=== PATIENT | female | born 1945 | race Hispanic/Latino ===

== ENCOUNTER 2017-11-13 21:06 | Observation (INO) | payer OTHER ==
[~2017-11-13] VITALS: Ht 170.2 cm; Wt 92.1 kg
[~2017-11-13 21:06] MED LIST: ALPR1TAB7 PO; AMLO10TA4 PO; ASPI-555 PO; ATOR10 PO; CARV6.2579 PO; DOXY100T2 PO; FURO40TA5 PO; GABA-529 PO; HYDR-4154 PO; Hydralazine Hcl PO; INSU100V SQ; INSU100V12 SQ; Isosorbide Mononitrate PO; METO2.5T2 PO
[2017-11-13 21:32] LABS: BASOPHILS % (AUTO) 0.6 % (0.0-5.0); EOSINOPHILS % (AUTO) 3.7 % (0.0-8.0); HEMATOCRIT 29.5 % (36-48); LYMPHOCYTES % (AUTO) 13.6 % (21.0-51.0); MEAN CORPUSCULAR HEMOGLOBIN 27.8 pg (27.0-33.0); MEAN CORPUSCULAR HGB CONC 33.7 g/dL (32.0-36.0); MEAN CORPUSCULAR VOLUME 82.5 fL (79-99); MONOCYTES % (AUTO) 5.7 % (3.0-13.0); NEUTROPHILS % (AUTO) 76.4 % (40.0-77.0); PLATELET COUNT (AUTO) 205 K/uL (130-400); RED BLOOD CELL COUNT(AUTO) 3.57 MIL/uL (4.00-5.50); RED CELL DISTRIBUTION WIDTH 16.6 % (11.0-15.5); WHITE BLOOD COUNT (AUTO) 6.8 K/uL (4.8-10.8)
[2017-11-13 21:57] LABS: CREATININE 2.4 mg/dL (0.5-1.5); POTASSIUM 3.8 mmol/L (3.5-5.1)
[2017-11-13 22:04] LABS: B-TYPE NATRIURETIC PEPTIDE 966 pg/mL (0-100)
[2017-11-13 22:10] LABS: ALBUMIN 3.9 g/dL (3.5-5.0); BILIRUBIN,TOTAL 0.4 mg/dL (0.2-1.0); CREATINE KINASE MB 2.6 ng/mL (0.5-3.6); TOTAL PROTEIN, SERUM 8.4 g/dL (6.0-8.3)
[2017-11-13] MEDS ORDERED: NITROGLYCERIN 1GM/1 INCH PACKET TD ONE (23:17)
[2017-11-13] MEDS ORDERED: FUROSEMIDE 10 MG/ML 4ML VIAL ONE (23:18)
[2017-11-14] MEDS ORDERED: NITROGLYCERIN 0.4 MG SL TAB SL PRN (00:45)
[2017-11-14] MEDS ORDERED: GUAIFENESIN-DM 200/20 MG 10 ML PO PRN (00:45)
[2017-11-14] MEDS ORDERED: POTASSIUM CHLORIDE 10% ELIXIR 20 MEQ/15 ML UDCUP PO PRN (00:45)
[2017-11-14] MEDS ORDERED: LIDOCAINE HCL-MPF 1% 2ML VIAL IVP PRN (00:45)
[2017-11-14] MEDS ORDERED: ACETAMINOPHEN 325 MG TAB PO PRN ×2 (00:45)
[2017-11-14] MEDS ORDERED: ONDANSETRON HCL 4 MG/2 ML VIAL IV PRN (00:45)
[2017-11-14] MEDS ORDERED: POTASSIUM CHLORIDE 20MEQ/100ML 100 ML IV PRN (00:45)
[2017-11-14] MEDS: NITROGLYCERIN 1GM/1 INCH PACKET TD SCH ×4 (01:00→19:52)
[2017-11-14 01:30] LABS: APPEARANCE,URINE Cloudy (CLEAR); BILIRUBIN,URINE Negative (NEGATIVE); COLOR,URINE Yellow (YELLOW); GLUCOSE, URINE (UA) Negative (NEGATIVE); KETONES,URINE Negative (NEGATIVE); LEUKOCYTE ESTERASE ,URINE Moderate (NEGATIVE); NITRATE,URINE Negative (NEGATIVE); OCCULT BLOOD,URINE Trace (NEGATIVE); PROTEIN,URINE POS 2+ (NEGATIVE); UROBILINOGEN,URINE 0.2 mg/dL (0.2-1.0)
[2017-11-14 01:55] LABS: BACTERIA,URINE Many /HPF (None Seen); MUCUS,URINE Few LPF (None Seen); SQUAMOUS EPITHELIAL CELL,UR Few /LPF (0-2)
[2017-11-14] MEDS ORDERED: ALPRAZOLAM 0.25 MG TABLET ONE (02:25)
[2017-11-14] MEDS ORDERED: LORAZEPAM 2 MG/ML 1 ML VIAL ONE ×2 (03:01→23:29)
[2017-11-14 06:36] LABS: HEMATOCRIT 26.3 % (36-48); MEAN CORPUSCULAR HGB CONC 33.1 g/dL (32.0-36.0); MEAN CORPUSCULAR VOLUME 81.6 fL (79-99); PLATELET COUNT (AUTO) 189 K/uL (130-400); RED BLOOD CELL COUNT(AUTO) 3.23 MIL/uL (4.00-5.50); RED CELL DISTRIBUTION WIDTH 16.4 % (11.0-15.5)
[2017-11-14 06:49] LABS: CREATININE 2.4 mg/dL (0.5-1.5); POTASSIUM 3.6 mmol/L (3.5-5.1)
[2017-11-14] MEDS: INSULIN HUMULIN R 100 UNIT/ML 3ML SQ SCH ×4 (07:30→20:46)
[2017-11-14] MEDS ORDERED: INSULIN HUMULIN R 100 UNIT/ML 3ML ONE (07:57)
[2017-11-14] MEDS ORDERED: FUROSEMIDE 10 MG/ML 4ML VIAL ONE (08:57)
[2017-11-14] MEDS ORDERED: ENOXAPARIN SODIUM 40 MG/0.4 ML SYRINGE SQ ONE (08:57)
[2017-11-14] MEDS ORDERED: ASPIRIN 325 MG TABLET ONE (08:57)
[2017-11-14] MEDS ORDERED: FAMOTIDINE 20MG TAB 20 MG TAB ONE (08:58)
[2017-11-14] MEDS ORDERED: NITROGLYCERIN 1GM/1 INCH PACKET TD ONE (08:58)
[2017-11-14] MEDS: FAMOTIDINE 20MG TAB 20 MG TAB PO SCH (09:00)
[2017-11-14] MEDS: ENOXAPARIN SODIUM 30 MG/0.3 ML SQ SCH (09:00)
[2017-11-14] MEDS: FUROSEMIDE 10 MG/ML 4ML VIAL IVP SCH ×2 (09:00→20:07)
[2017-11-14] MEDS: ASPIRIN 325 MG TABLET PO SCH (09:00)
[2017-11-14] MEDS ORDERED: HYDRALAZINE HCL 20 MG/ML VIAL ONE (09:52)
[2017-11-14 11:26] VITALS: BP 182/67
[2017-11-14] MEDS ORDERED: CEFTRIAXONE SODIUM 1 GM IVP SCH (12:30)
[2017-11-14] MEDS ORDERED: CEFTRIAXONE 1GM/D5W 50ML 50 ML IV SCH (12:30)
[2017-11-14] MEDS: AMLODIPINE BESYLATE 5 MG TAB PO SCH (12:36)
[2017-11-14] MEDS: POTASSIUM CHLORIDE 20 MEQ ERTAB PO PRN ×2 (15:28→17:28)
[2017-11-14 16:19] VITALS: BP 149/57
[2017-11-14 19:46] VITALS: BP 178/62
[2017-11-14] MEDS: GABAPENTIN 100 MG CAPSULE PO SCH (20:08)
[2017-11-14] MEDS: CARVEDILOL 6.25 MG TABLET PO SCH (20:08)
[2017-11-14] MEDS ORDERED: ATORVASTATIN CALCIUM 10 MG TABLET PO SCH (21:00)
[2017-11-14] MEDS ORDERED: LORAZEPAM 2 MG/ML 1 ML VIAL IVP PRN (23:00)
[2017-11-15 00:08] VITALS: BP 167/66
[2017-11-15] MEDS: NITROGLYCERIN 1GM/1 INCH PACKET TD SCH (03:27)
[2017-11-15 03:46] VITALS: BP 176/73
[2017-11-15 04:42] LABS: HEMATOCRIT 26.8 % (36-48); MEAN CORPUSCULAR HEMOGLOBIN 27.7 pg (27.0-33.0); MEAN CORPUSCULAR HGB CONC 33.3 g/dL (32.0-36.0); MEAN CORPUSCULAR VOLUME 83.1 fL (79-99); PLATELET COUNT (AUTO) 158 K/uL (130-400); RED BLOOD CELL COUNT(AUTO) 3.22 MIL/uL (4.00-5.50); WHITE BLOOD COUNT (AUTO) 5.1 K/uL (4.8-10.8)
[2017-11-15 04:52] LABS: CREATININE 2.5 mg/dL (0.5-1.5); POTASSIUM 3.6 mmol/L (3.5-5.1)
[2017-11-15] MEDS: INSULIN HUMULIN R 100 UNIT/ML 3ML SQ SCH (05:36)
[2017-11-15 07:36] VITALS: BP 120/80
[2017-11-15] MEDS: ENOXAPARIN SODIUM 30 MG/0.3 ML SQ SCH (08:12)
[2017-11-15 08:13] VITALS: BP 120/80
[2017-11-15] MEDS: CARVEDILOL 6.25 MG TABLET PO SCH (08:13)
[2017-11-15] MEDS: FAMOTIDINE 20MG TAB 20 MG TAB PO SCH (08:13)
[2017-11-15] MEDS: GABAPENTIN 100 MG CAPSULE PO SCH (08:13)
[2017-11-15] MEDS: AMLODIPINE BESYLATE 5 MG TAB PO SCH (08:13)
[2017-11-15] MEDS: FUROSEMIDE 10 MG/ML 4ML VIAL IVP SCH (08:14)
[2017-11-15] MEDS: ASPIRIN 325 MG TABLET PO SCH (08:14)
[2017-11-15] MEDS ORDERED: DOXY100C2 PO (08:54)
[2017-11-15] MEDS ORDERED: ASPIRIN 81 MG EC TAB PO SCH (09:00)
[2018-04-28] MEDS ORDERED: IBUP-2353 PO (13:05)
[2018-04-28] MEDS ORDERED: APIX2.5T PO (13:05)
== END 2017-11-15 09:50 | disposition home or self-care (01) ==
LOC: EDH 21:06 → EDHIP 23:30 → 2CH 11-14 10:56 → 2AH 11-14 14:09
PROVIDERS: ADMIT Internal Medicine; ATTEND Internal Medicine
DX: I50.43 Acute on chronic combined systolic (congestive) and diastolic (congestive) heart failure (principal); I13.0 Hypertensive heart and chronic kidney disease with heart failure and stage 1 through stage 4 chronic kidney disease, or unspecified chronic kidney disease; E11.22 Type 2 diabetes mellitus with diabetic chronic kidney disease; N18.3 Chronic kidney disease, stage 3 (moderate); E78.5 Hyperlipidemia, unspecified; N39.0 Urinary tract infection, site not specified; D64.9 Anemia, unspecified; Z82.49 Family history of ischemic heart disease and other diseases of the circulatory system
CPT/HCPCS: 36415 ×3; 71010; 80048 ×2; 80053; 81001; 82550; 82553; 82948 ×5; 83880; 84484; 85025; 85027 ×2; 87088; 87186; 93005; 96374; 96375 ×2; 96376; 99291; G0378 ×34; J0360; J0696; J1650; J1815; J1940 ×4; J2060 ×2; A4218

== ENCOUNTER 2017-11-16 15:20 | Emergency (ER) | payer OTHER, MEDICARE ==
[~2017-11-16 15:20] MED LIST changes: +DOXY100C2 PO; -DOXY100T2 PO; -HYDR-4154 PO; -Hydralazine Hcl PO; -Isosorbide Mononitrate PO; -METO2.5T2 PO
[2017-11-16 16:28] LABS: BASOPHILS % (AUTO) 0.6 % (0.0-5.0); EOSINOPHILS % (AUTO) 1.9 % (0.0-8.0); HEMATOCRIT 29.2 % (36-48); LYMPHOCYTES % (AUTO) 5.1 % (21.0-51.0); MEAN CORPUSCULAR HEMOGLOBIN 27.1 pg (27.0-33.0); MEAN CORPUSCULAR VOLUME 82.1 fL (79-99); MONOCYTES % (AUTO) 5.7 % (3.0-13.0); NEUTROPHILS % (AUTO) 86.7 % (40.0-77.0); NUCLEATED RED BLOOD CELLS 0.1 % (0.0-0.19); PLATELET COUNT (AUTO) 174 K/uL (130-400); RED BLOOD CELL COUNT(AUTO) 3.55 MIL/uL (4.00-5.50); RED CELL DISTRIBUTION WIDTH 16.8 % (11.0-15.5); WHITE BLOOD COUNT (AUTO) 6.9 K/uL (4.8-10.8)
[2017-11-16 16:36] LABS: CREATININE 2.4 mg/dL (0.5-1.5); POTASSIUM 3.6 mmol/L (3.5-5.1)
[2017-11-16 16:41] LABS: ALBUMIN 3.8 g/dL (3.5-5.0); BILIRUBIN,TOTAL 0.6 mg/dL (0.2-1.0); TOTAL PROTEIN, SERUM 8.1 g/dL (6.0-8.3)
[2017-11-16] MEDS ORDERED: OSELTAMIVIR PHOSPHATE 75 MG CAP ONE (18:20)
[2017-11-16] MEDS ORDERED: LORAZEPAM 1 MG TABLET ONE (18:21)
[2017-11-16] MEDS ORDERED: LORAZEPAM 2 MG/ML 1 ML VIAL ONE (18:40)
[2017-11-16] MEDS ORDERED: OSELTAMIVIR SUSP 15 MG/ML (6 CAPS/29ML) PO SCH ×2 (18:45)
[2017-11-16] MEDS ORDERED: ACETAMINOPHEN 325 MG TAB ONE (19:38)
[2017-11-16] MEDS ORDERED: ACETAMINOPHEN ELIXIR 650 MG/20.3 ML UDCUP ONE (20:00)
[2017-11-16] MEDS ORDERED: NITROGLYCERIN 1GM/1 INCH PACKET TD ONE (20:15)
[2017-11-16] MEDS ORDERED: IPRATROPIUM/ALBUTEROL SULFATE 3 ML SOLUTION IH ONE (22:05)
[2018-04-28] MEDS ORDERED: APIX2.5T PO (13:05)
[2018-04-28] MEDS ORDERED: IBUP-2353 PO (13:05)
== END 2017-11-16 23:24 | disposition home or self-care (01) ==
LOC: EDH 15:20
DX: J10.1 Influenza due to other identified influenza virus with other respiratory manifestations (principal); I13.2 Hypertensive heart and chronic kidney disease with heart failure and with stage 5 chronic kidney disease, or end stage renal disease; E13.22 Other specified diabetes mellitus with diabetic chronic kidney disease; N18.6 End stage renal disease; I50.9 Heart failure, unspecified; Z88.1 Allergy status to other antibiotic agents; Z88.6 Allergy status to analgesic agent; Z79.4 Long term (current) use of insulin
CPT/HCPCS: 36415; 71046; 80053; 84484; 85025; 87804 ×2; 93005; 94640; 96374; 99285; J2060

== ENCOUNTER 2018-01-02 12:55 | Observation (INO) | payer OTHER, MEDICARE ==
[~2018-01-02] VITALS: Ht 170.2 cm; Wt 96.4 kg
[2018-01-02 13:22] LABS: HEMATOCRIT 29.1 % (36-48); MEAN CORPUSCULAR HGB CONC 33.8 g/dL (32.0-36.0); MEAN CORPUSCULAR VOLUME 82.9 fL (79-99); PLATELET COUNT (AUTO) 152 K/uL (130-400); RED BLOOD CELL COUNT(AUTO) 3.51 MIL/uL (4.00-5.50); RED CELL DISTRIBUTION WIDTH 16.5 % (11.0-15.5); WHITE BLOOD COUNT (AUTO) 6.2 K/uL (4.8-10.8)
[2018-01-02 13:45] LABS: INR 1.15 (0.85-1.15); PARTIAL THROMBOPLASTIN TIME 26.8 SEC (26.3-35.5)
[2018-01-02 13:47] LABS: CREATININE 2.4 mg/dL (0.5-1.5); POTASSIUM 4.6 mmol/L (3.5-5.1)
[2018-01-02 13:51] LABS: ALBUMIN 3.5 g/dL (3.5-5.0); BILIRUBIN,TOTAL 0.4 mg/dL (0.2-1.0); TOTAL PROTEIN, SERUM 7.8 g/dL (6.0-8.3)
[2018-01-02 13:55] LABS: B-TYPE NATRIURETIC PEPTIDE 939 pg/mL (0-100)
[2018-01-02 13:57] LABS: EOSINOPHILS % (MANUAL) 3 % (1-6); LYMPHOCYTES % (MANUAL) 15 % (22-44); MAN.DIFF COMMENT-IMPRESSION MANUAL DIFFERENTIAL; MONOCYTES % (MANUAL) 8 % (2-9); PLATELET MORPHOLOGY COMMENT ADEQUATE; SEGMENTED NEUTROPHILS % 74 % (40-70)
[2018-01-02] MEDS ORDERED: FUROSEMIDE 10 MG/ML 4ML VIAL ONE (15:20)
[2018-01-02] MEDS ORDERED: FUROSEMIDE 10 MG/ML 2ML VIAL ONE (15:20)
[2018-01-02 16:28] LABS: BILIRUBIN,URINE Negative (NEGATIVE); COLOR,URINE Yellow (YELLOW); GLUCOSE, URINE (UA) Negative (NEGATIVE); KETONES,URINE Negative (NEGATIVE); LEUKOCYTE ESTERASE ,URINE Large (NEGATIVE); NITRATE,URINE Negative (NEGATIVE); OCCULT BLOOD,URINE Small (NEGATIVE); PROTEIN,URINE POS 1+ (NEGATIVE); UROBILINOGEN,URINE 0.2 mg/dL (0.2-1.0)
[2018-01-02] MEDS ORDERED: MAG HYDROX/AL HYDROX/SIMETH ES 30 ML SUSP UDCUP PO PRN (16:30)
[2018-01-02] MEDS ORDERED: ONDANSETRON HCL 4 MG/2 ML VIAL IV PRN (16:30)
[2018-01-02] MEDS ORDERED: LACTULOSE 20 GM/30 ML UDCUP PO PRN (16:30)
[2018-01-02] MEDS ORDERED: ACETAMINOPHEN 325 MG TAB PO PRN ×2 (16:30)
[2018-01-02] MEDS ORDERED: GUAIFENESIN-DM 200/20 MG 10 ML PO PRN (16:30)
[2018-01-02 16:32] LABS: APPEARANCE,URINE SLIGHTLY CLOUDY (CLEAR)
[2018-01-02 16:48] LABS: WBC,URINE 26-50 /HPF (0-1)
[2018-01-02 16:49] LABS: BACTERIA,URINE Moderate /HPF (None Seen); RBC,URINE 0-1 /HPF (0-1); SQUAMOUS EPITHELIAL CELL,UR Few /LPF (0-2)
[2018-01-02] MEDS: IPRATROPIUM/ALBUTEROL SULFATE 3 ML SOLUTION IH SCH ×2 (17:47→23:24)
[2018-01-02 17:49] VITALS: BP 167/75
[2018-01-02 19:02] VITALS: BP 182/62
[2018-01-02] MEDS: FAMOTIDINE/PF 20 MG/2 ML VIAL IV SCH (19:57)
[2018-01-02] MEDS: FUROSEMIDE 10 MG/ML 4ML VIAL IVP SCH (19:58)
[2018-01-02] MEDS: INSULIN HUMULIN R 100 UNIT/ML 3ML SQ SCH (21:00)
[2018-01-02] MEDS ORDERED: HYDRALAZINE HCL 20 MG/ML VIAL ONE (22:47)
[2018-01-02] MEDS ORDERED: HYDRALAZINE HCL 20 MG/ML VIAL IV PRN (23:00)
[2018-01-02] MEDS ORDERED: GLUCAGON 1MG KIT 1 MG ML IM PRN (23:00)
[2018-01-02] MEDS ORDERED: DEXTROSE 50%-WATER 50 ML DISP.SYRIN IV PRN (23:00)
[2018-01-02 23:08] VITALS: BP 155/56
[2018-01-03] VITALS (7 sets, daily range): BP systolic 166–187; BP diastolic 49–74
[2018-01-03] MEDS ORDERED: CEFTRIAXONE 1GM/D5W 50ML 50 ML IV SCH (00:15)
[2018-01-03 04:00] LABS: HEMATOCRIT 28.6 % (36-48); MEAN CORPUSCULAR HEMOGLOBIN 27.5 pg (27.0-33.0); MEAN CORPUSCULAR HGB CONC 33.2 g/dL (32.0-36.0); MEAN CORPUSCULAR VOLUME 82.9 fL (79-99); NUCLEATED RED BLOOD CELLS 0.5 % (0.0-0.19); PLATELET COUNT (AUTO) 159 K/uL (130-400); RED BLOOD CELL COUNT(AUTO) 3.45 MIL/uL (4.00-5.50); RED CELL DISTRIBUTION WIDTH 16.8 % (11.0-15.5); WHITE BLOOD COUNT (AUTO) 6.6 K/uL (4.8-10.8)
[2018-01-03 04:38] LABS: CARBON DIOXIDE 23 mmol/L (21-32); CHLORIDE 107 mmol/L (101-111); CREATINE KINASE MB 1.6 ng/mL (0.5-3.6); CREATINE KINASE, TOTAL 119 U/L (21-232); CREATININE 2.4 mg/dL (0.5-1.5); GLOMERULAR FILTR. RATE CALC 21 mL/min (>60); GLUCOSE,RANDOM 174 mg/dL (70-105); MYOGLOBIN 181 ng/mL (10-92); POTASSIUM 3.9 mmol/L (3.5-5.1); SODIUM SERUM 143 mmol/L (136-145); TROPONIN I < 0.04 ng/mL (0.00-0.06); UREA NITROGEN, BLOOD 50 mg/dL (7-18)
[2018-01-03 04:50] LABS: B-TYPE NATRIURETIC PEPTIDE 952 pg/mL (0-100)
[2018-01-03] MEDS: INSULIN HUMULIN R 100 UNIT/ML 3ML SQ SCH ×3 (05:28→21:17)
[2018-01-03] MEDS: IPRATROPIUM/ALBUTEROL SULFATE 3 ML SOLUTION IH SCH ×3 (05:53→19:02)
[2018-01-03] MEDS ORDERED: CEFTRIAXONE SODIUM 1 GM IVP SCH (06:45)
[2018-01-03] MEDS: FUROSEMIDE 10 MG/ML 4ML VIAL IVP SCH ×2 (08:50→17:20)
[2018-01-03] MEDS: FAMOTIDINE/PF 20 MG/2 ML VIAL IV SCH (08:51)
[2018-01-03] MEDS: CARVEDILOL 6.25 MG TABLET PO SCH ×2 (10:21→20:29)
[2018-01-03] MEDS: AMLODIPINE BESYLATE 5 MG TAB PO SCH (10:21)
[2018-01-03] MEDS: ASPIRIN 81 MG EC TAB PO SCH (10:21)
[2018-01-03] MEDS: GABAPENTIN 100 MG CAPSULE PO SCH ×2 (10:21→20:28)
[2018-01-03] MEDS ORDERED: CEFEPIME 1GM+NS 50ML 50 ML IV SCH (11:00)
[2018-01-03] MEDS: HEPARIN SODIUM 5000UNIT/ML 1ML VIAL SQ SCH ×3 (11:00→22:17)
[2018-01-03] MEDS: CEFEPIME HCL 1 GM VIAL IVP SCH ×2 (12:16→22:15)
[2018-01-03] MEDS: HYDRALAZINE HCL 25 MG TABLET PO SCH ×3 (12:20→20:30)
[2018-01-03] MEDS: DOXYCYCLINE HYCLATE 100 MG TABLET PO SCH (20:30)
[2018-01-03] MEDS ORDERED: TRAZODONE HCL 50 MG TAB PO PRN (21:00)
[2018-01-03] MEDS ORDERED: ATORVASTATIN CALCIUM 10 MG TABLET PO SCH (21:00)
[2018-01-03] MEDS ORDERED: INSULIN GLARGINE 100 UNITS/ML 10 ML VIAL SQ SCH (21:00)
[2018-01-04 04:05] VITALS: BP 153/49
[2018-01-04 04:48] LABS: HEMATOCRIT 28.1 % (36-48); MEAN CORPUSCULAR HEMOGLOBIN 28.2 pg (27.0-33.0); MEAN CORPUSCULAR HGB CONC 33.7 g/dL (32.0-36.0); MEAN CORPUSCULAR VOLUME 83.5 fL (79-99); PLATELET COUNT (AUTO) 157 K/uL (130-400); RED BLOOD CELL COUNT(AUTO) 3.37 MIL/uL (4.00-5.50); RED CELL DISTRIBUTION WIDTH 16.7 % (11.0-15.5); WHITE BLOOD COUNT (AUTO) 6.2 K/uL (4.8-10.8)
[2018-01-04 05:11] LABS: CREATININE 2.7 mg/dL (0.5-1.5); MAGNESIUM 2.5 mg/dL (1.80-2.40); PHOSPHORUS 4.6 mg/dL (2.5-4.9); POTASSIUM 3.9 mmol/L (3.5-5.1); THYROID STIMULATING HORMONE 3.02 uIU/mL (0.36-3.74)
[2018-01-04] MEDS: IPRATROPIUM/ALBUTEROL SULFATE 3 ML SOLUTION IH SCH ×3 (05:49→11:05)
[2018-01-04] MEDS: INSULIN HUMULIN R 100 UNIT/ML 3ML SQ SCH ×2 (06:25→11:30)
[2018-01-04 07:00] VITALS: BP 177/71
[2018-01-04] MEDS: GABAPENTIN 100 MG CAPSULE PO SCH (08:27)
[2018-01-04] MEDS: ASPIRIN 81 MG EC TAB PO SCH (08:27)
[2018-01-04] MEDS: HYDRALAZINE HCL 25 MG TABLET PO SCH ×2 (08:27→14:34)
[2018-01-04] MEDS: DOXYCYCLINE HYCLATE 100 MG TABLET PO SCH (08:28)
[2018-01-04] MEDS: AMLODIPINE BESYLATE 5 MG TAB PO SCH (08:28)
[2018-01-04] MEDS: FUROSEMIDE 10 MG/ML 4ML VIAL IVP SCH (08:28)
[2018-01-04] MEDS ORDERED: FAMOTIDINE/PF 20 MG/2 ML VIAL IV SCH (09:00)
[2018-01-04] MEDS: CARVEDILOL 6.25 MG TABLET PO SCH (09:00)
[2018-01-04 11:00] VITALS: BP 165/60
[2018-01-04] MEDS: HEPARIN SODIUM 5000UNIT/ML 1ML VIAL SQ SCH (11:00)
[2018-01-04] MEDS ORDERED: DOXY100C2 PO (14:51)
[2018-04-28] MEDS ORDERED: IBUP-2353 PO (13:05)
[2018-04-28] MEDS ORDERED: APIX2.5T PO (13:05)
== END 2018-01-04 17:35 | disposition home or self-care (01) ==
LOC: EDH 12:55 → 2AH 16:27 → INTOOBSV 16:27
PROVIDERS: ADMIT Family Medicine; ATTEND Family Medicine
DX: I13.0 Hypertensive heart and chronic kidney disease with heart failure and stage 1 through stage 4 chronic kidney disease, or unspecified chronic kidney disease (principal); J96.10 Chronic respiratory failure, unspecified whether with hypoxia or hypercapnia; E11.51 Type 2 diabetes mellitus with diabetic peripheral angiopathy without gangrene; E11.22 Type 2 diabetes mellitus with diabetic chronic kidney disease; N18.3 Chronic kidney disease, stage 3 (moderate); I50.42 Chronic combined systolic (congestive) and diastolic (congestive) heart failure; E78.5 Hyperlipidemia, unspecified; M19.90 Unspecified osteoarthritis, unspecified site; D64.9 Anemia, unspecified; Z87.01 Personal history of pneumonia (recurrent); Z99.81 Dependence on supplemental oxygen; Z90.49 Acquired absence of other specified parts of digestive tract; Z96.659 Presence of unspecified artificial knee joint; Z88.1 Allergy status to other antibiotic agents; Z88.8 Allergy status to other drugs, medicaments and biological substances
CPT/HCPCS: 36415 ×3; 71045 ×2; 71250; 80048 ×2; 80053; 81001; 82550; 82553; 82948 ×7; 83735; 83874; 83880 ×2; 84100; 84443; 84484 ×2; 85007; 85025; 85027 ×2; 85610; 85730; 93005; 93306; 93925; 93970; 94640 ×7; 94664; 96372; 96374; 96375 ×2; 96376 ×2; 97116; 97161; 99291; A4218 ×3; G0378 ×49; G8978; G8979; G8980; G8981; G8982; G8983; J0360; J0692 ×2; J0696; J1644; J1815; J1940 ×6; J3490 ×3

== ENCOUNTER 2018-03-20 18:52 | Inpatient (IN) | payer OTHER, MEDICARE ==
[~2018-03-20] VITALS: Ht 170.2 cm; Wt 92.4 kg
[2018-03-20] MEDS ORDERED: IPRATROPIUM/ALBUTEROL SULFATE 3 ML SOLUTION IH ONE ×3 (19:17→23:42)
[2018-03-20 19:28] LABS: BASOPHILS % (AUTO) 0.5 % (0.0-5.0); EOSINOPHILS % (AUTO) 1.2 % (0.0-8.0); HEMATOCRIT 26.4 % (36-48); LYMPHOCYTES % (AUTO) 6.4 % (21.0-51.0); MEAN CORPUSCULAR HEMOGLOBIN 26.8 pg (27.0-33.0); MEAN CORPUSCULAR HGB CONC 32.5 g/dL (32.0-36.0); MEAN CORPUSCULAR VOLUME 82.6 fL (79-99); MONOCYTES % (AUTO) 5.3 % (3.0-13.0); NEUTROPHILS % (AUTO) 86.6 % (40.0-77.0); PLATELET COUNT (AUTO) 264 K/uL (130-400); WHITE BLOOD COUNT (AUTO) 10.7 K/uL (4.8-10.8)
[2018-03-20 19:44] LABS: INR 1.15 (0.85-1.15); PARTIAL THROMBOPLASTIN TIME 25.7 SEC (26.3-35.5)
[2018-03-20 19:45] LABS: CREATININE 2.4 mg/dL (0.5-1.5); POTASSIUM 3.4 mmol/L (3.5-5.1)
[2018-03-20 19:49] LABS: BILIRUBIN,TOTAL 0.7 mg/dL (0.2-1.0); TOTAL PROTEIN, SERUM 8.8 g/dL (6.0-8.3)
[2018-03-20 19:54] LABS: B-TYPE NATRIURETIC PEPTIDE 2730 pg/mL (0-100)
[2018-03-20] MEDS ORDERED: ONDANSETRON HCL 4 MG/2 ML VIAL ONE (20:07)
[2018-03-20] MEDS ORDERED: BUMETANIDE 0.25 MG/ML ONE (20:25)
[2018-03-20] MEDS ORDERED: FUROSEMIDE 10 MG/ML 4ML VIAL ONE ×2 (20:25→20:29)
[2018-03-20] MEDS ORDERED: FUROSEMIDE 10 MG/ML 2ML VIAL ONE (20:26)
[2018-03-20] MEDS ORDERED: SODIUM CHLORIDE 0.9% 50 ML IV ONE (20:34)
[2018-03-20] MEDS ORDERED: NITROGLYCERIN 1GM/1 INCH PACKET TD ONE (21:41)
[2018-03-20 22:16] VITALS: BP 194/95
[2018-03-20] MEDS ORDERED: DEXTROSE 50%-WATER 50 ML DISP.SYRIN IV PRN (22:45)
[2018-03-20] MEDS ORDERED: ONDANSETRON HCL MDV 20ML 2 MG/ML VIAL IV PRN (22:45)
[2018-03-20] MEDS ORDERED: NITROGLYCERIN 0.4 MG SL TAB SL PRN (22:45)
[2018-03-20] MEDS ORDERED: GLUCAGON 1MG KIT 1 MG ML IM PRN (22:45)
[2018-03-20] MEDS ORDERED: ACETAMINOPHEN 325 MG TAB PO PRN ×2 (22:45)
[2018-03-20] MEDS ORDERED: LACTULOSE 20 GM/30 ML UDCUP PO PRN (22:45)
[2018-03-20] MEDS: NITROGLYCERIN 1GM/1 INCH PACKET TD SCH (23:00)
[2018-03-20] MEDS ORDERED: FUROSEMIDE 10 MG/ML 4ML VIAL IVP SCH (23:00)
[2018-03-20] MEDS ORDERED: HYDRALAZINE HCL 20 MG/ML VIAL ONE (23:31)
[2018-03-20 23:45] VITALS: BP 187/78
[2018-03-20] MEDS: HYDRALAZINE HCL 20 MG/ML VIAL IV PRN (23:57)
[2018-03-21 02:09] LABS: CREATINE KINASE MB 1.5 ng/mL (0.5-3.6); TROPONIN I 0.13 ng/mL (0.00-0.06)
[2018-03-21] MEDS ORDERED: ALPRAZOLAM 0.5 MG TABLET PO ONE (02:30)
[2018-03-21] MEDS ORDERED: ALPRAZOLAM 0.5 MG TABLET ONE (02:30)
[2018-03-21 04:00] VITALS: BP 177/68
[2018-03-21] MEDS ORDERED: FUROSEMIDE 10 MG/ML 4ML VIAL IVP SCH (05:00)
[2018-03-21] MEDS: IPRATROPIUM/ALBUTEROL SULFATE 3 ML SOLUTION IH SCH ×5 (05:46→23:41)
[2018-03-21] MEDS: HYDRALAZINE HCL 20 MG/ML VIAL IV PRN (06:34)
[2018-03-21] MEDS: INSULIN HUMULIN R 100 UNIT/ML 3ML SQ SCH ×4 (06:42→21:00)
[2018-03-21] MEDS: NITROGLYCERIN 1GM/1 INCH PACKET TD SCH ×3 (06:44→22:20)
[2018-03-21 07:06] LABS: HEMATOCRIT 23.4 % (36-48); MEAN CORPUSCULAR HEMOGLOBIN 27.3 pg (27.0-33.0); MEAN CORPUSCULAR HGB CONC 33.1 g/dL (32.0-36.0); MEAN CORPUSCULAR VOLUME 82.6 fL (79-99); PLATELET COUNT (AUTO) 218 K/uL (130-400); RED BLOOD CELL COUNT(AUTO) 2.84 MIL/uL (4.00-5.50); RED CELL DISTRIBUTION WIDTH 16.2 % (11.0-15.5); WHITE BLOOD COUNT (AUTO) 9.3 K/uL (4.8-10.8)
[2018-03-21 07:13] VITALS: BP 184/66
[2018-03-21 07:32] LABS: CREATININE 2.4 mg/dL (0.5-1.5); POTASSIUM 3.5 mmol/L (3.5-5.1)
[2018-03-21 07:34] LABS: B-TYPE NATRIURETIC PEPTIDE 3430 pg/mL (0-100)
[2018-03-21 07:38] LABS: HEMOGLOBIN A1C 8.2 % (4.0-6.0)
[2018-03-21 07:40] LABS: CREATINE KINASE MB 2.6 ng/mL (0.5-3.6)
[2018-03-21 07:44] LABS: TROPONIN I 0.79 ng/mL (0.00-0.06)
[2018-03-21] MEDS ORDERED: ALPRAZOLAM 1 MG TAB PO PRN (08:30)
[2018-03-21] MEDS ORDERED: ONDANSETRON HCL 4 MG/2 ML VIAL IV PRN (08:30)
[2018-03-21] MEDS ORDERED: MAG HYDROX/AL HYDROX/SIMETH ES 30 ML SUSP UDCUP PO PRN (08:30)
[2018-03-21] MEDS ORDERED: NITROGLYCERIN 0.4 MG SL TAB SL PRN (08:30)
[2018-03-21] MEDS ORDERED: GUAIFENESIN-DM 200/20 MG 10 ML PO PRN (08:30)
[2018-03-21] MEDS ORDERED: HYDRALAZINE HCL 20 MG/ML VIAL IV PRN (08:30)
[2018-03-21] MEDS ORDERED: ACETAMINOPHEN 325 MG TAB PO PRN ×2 (08:30)
[2018-03-21] MEDS ORDERED: LACTULOSE 20 GM/30 ML UDCUP PO PRN (08:30)
[2018-03-21 08:40] LABS: RETICULOCYTE % (AUTO) 2.56 % (0.42-2.23)
[2018-03-21] MEDS: ENOXAPARIN SODIUM 30 MG/0.3 ML SQ SCH (09:00)
[2018-03-21] MEDS: CARVEDILOL 6.25 MG TABLET PO SCH ×2 (09:47→21:00)
[2018-03-21] MEDS: AMLODIPINE BESYLATE 5 MG TAB PO SCH (09:47)
[2018-03-21] MEDS: METOLAZONE 2.5 MG TABLET PO SCH (09:47)
[2018-03-21] MEDS: FUROSEMIDE 10 MG/ML 4ML VIAL IVP SCH ×2 (09:47→22:17)
[2018-03-21] MEDS: FAMOTIDINE 20MG TAB 20 MG TAB PO SCH ×2 (09:47→22:18)
[2018-03-21] MEDS: ASPIRIN 81 MG EC TAB PO SCH (09:47)
[2018-03-21 11:18] VITALS: BP 137/67
[2018-03-21 13:42] LABS: TROPONIN I 1.69 ng/mL (0.00-0.06)
[2018-03-21 16:07] VITALS: BP 135/63
[2018-03-21] MEDS: GUAIFENESIN-DM 200/20 MG 10 ML PO PRN ×2 (16:47→22:19)
[2018-03-21] MEDS: CADEXOMER IODINE 40 GM GEL TP SCH (19:17)
[2018-03-21 19:43] VITALS: BP 169/65
[2018-03-21] MEDS ORDERED: INSULIN DETEMIR 10ML 100 UNIT/ML 10ML SQ SCH (21:00)
[2018-03-21] MEDS: INSULIN GLARGINE 100 UNITS/ML 10 ML VIAL SQ SCH (22:22)
[2018-03-21 23:27] VITALS: BP 173/67
[2018-03-22] MEDS: HYDRALAZINE HCL 20 MG/ML VIAL IV PRN (02:02)
[2018-03-22 03:09] VITALS: BP 155/67
[2018-03-22 04:29] LABS: HEMATOCRIT 24.5 % (36-48); MEAN CORPUSCULAR HGB CONC 32.8 g/dL (32.0-36.0); MEAN CORPUSCULAR VOLUME 82.3 fL (79-99); PLATELET COUNT (AUTO) 224 K/uL (130-400); RED BLOOD CELL COUNT(AUTO) 2.98 MIL/uL (4.00-5.50); RED CELL DISTRIBUTION WIDTH 16.2 % (11.0-15.5); WHITE BLOOD COUNT (AUTO) 8.3 K/uL (4.8-10.8)
[2018-03-22 04:37] LABS: CREATININE 2.6 mg/dL (0.5-1.5); POTASSIUM 3.5 mmol/L (3.5-5.1)
[2018-03-22] MEDS: IPRATROPIUM/ALBUTEROL SULFATE 3 ML SOLUTION IH SCH ×4 (06:02→23:33)
[2018-03-22] MEDS: INSULIN HUMULIN R 100 UNIT/ML 3ML SQ SCH ×4 (06:06→20:35)
[2018-03-22] MEDS: NITROGLYCERIN 1GM/1 INCH PACKET TD SCH ×3 (06:34→22:54)
[2018-03-22 08:03] VITALS: BP 186/74
[2018-03-22] MEDS: FUROSEMIDE 10 MG/ML 4ML VIAL IVP SCH ×2 (08:57→20:22)
[2018-03-22] MEDS: AMLODIPINE BESYLATE 5 MG TAB PO SCH (08:58)
[2018-03-22] MEDS: CARVEDILOL 6.25 MG TABLET PO SCH ×2 (08:58→20:21)
[2018-03-22] MEDS: FAMOTIDINE 20MG TAB 20 MG TAB PO SCH ×2 (08:58→20:22)
[2018-03-22] MEDS: ASPIRIN 81 MG EC TAB PO SCH (08:58)
[2018-03-22] MEDS: METOLAZONE 2.5 MG TABLET PO SCH (08:58)
[2018-03-22] MEDS: ENOXAPARIN SODIUM 30 MG/0.3 ML SQ SCH (09:00)
[2018-03-22 11:24] VITALS: BP 152/61
[2018-03-22 16:00] VITALS: BP 160/67
[2018-03-22 19:06] VITALS: BP 156/60
[2018-03-22] MEDS: INSULIN GLARGINE 100 UNITS/ML 10 ML VIAL SQ SCH (20:39)
[2018-03-22] MEDS: GUAIFENESIN-DM 200/20 MG 10 ML PO PRN (20:40)
[2018-03-22 23:20] VITALS: BP 163/70
[2018-03-23] VITALS (7 sets, daily range): BP systolic 138–186; BP diastolic 59–79
[2018-03-23] MEDS: CADEXOMER IODINE 40 GM GEL TP SCH (02:52)
[2018-03-23] MEDS: TRAMADOL HCL 50 MG TABLET PO PRN (03:44)
[2018-03-23 04:20] LABS: HEMATOCRIT 23.6 % (36-48); MEAN CORPUSCULAR HEMOGLOBIN 27.8 pg (27.0-33.0); MEAN CORPUSCULAR HGB CONC 33.9 g/dL (32.0-36.0); MEAN CORPUSCULAR VOLUME 81.9 fL (79-99); PLATELET COUNT (AUTO) 257 K/uL (130-400); RED BLOOD CELL COUNT(AUTO) 2.88 MIL/uL (4.00-5.50); RED CELL DISTRIBUTION WIDTH 16.3 % (11.0-15.5); WHITE BLOOD COUNT (AUTO) 9.6 K/uL (4.8-10.8)
[2018-03-23] MEDS: HYDRALAZINE HCL 20 MG/ML VIAL IV PRN ×2 (04:31→14:56)
[2018-03-23 04:40] LABS: CREATININE 2.9 mg/dL (0.5-1.5); POTASSIUM 3.5 mmol/L (3.5-5.1)
[2018-03-23 04:43] LABS: B-TYPE NATRIURETIC PEPTIDE 1700 pg/mL (0-100)
[2018-03-23] MEDS: INSULIN HUMULIN R 100 UNIT/ML 3ML SQ SCH ×4 (05:46→21:00)
[2018-03-23] MEDS: NITROGLYCERIN 1GM/1 INCH PACKET TD SCH ×2 (06:09→14:56)
[2018-03-23] MEDS: IPRATROPIUM/ALBUTEROL SULFATE 3 ML SOLUTION IH SCH ×4 (06:14→23:11)
[2018-03-23] MEDS: METOLAZONE 2.5 MG TABLET PO SCH (07:57)
[2018-03-23] MEDS: ENOXAPARIN SODIUM 30 MG/0.3 ML SQ SCH ×2 (09:00→10:06)
[2018-03-23] MEDS: FAMOTIDINE 20MG TAB 20 MG TAB PO SCH ×3 (09:00→21:00)
[2018-03-23] MEDS: ASPIRIN 81 MG EC TAB PO SCH (10:05)
[2018-03-23] MEDS: AMLODIPINE BESYLATE 5 MG TAB PO SCH (10:05)
[2018-03-23] MEDS: CARVEDILOL 6.25 MG TABLET PO SCH ×2 (10:06→21:41)
[2018-03-23] MEDS: FUROSEMIDE 10 MG/ML 4ML VIAL IVP SCH ×2 (10:06→21:42)
[2018-03-23] MEDS: INSULIN GLARGINE 100 UNITS/ML 10 ML VIAL SQ SCH (21:00)
[2018-03-23] MEDS ORDERED: FUROSEMIDE 10 MG/ML 4ML VIAL ONE (21:36)
[2018-03-23] MEDS: GUAIFENESIN-DM 200/20 MG 10 ML PO PRN (23:40)
[2018-03-24] MEDS: NITROGLYCERIN 1GM/1 INCH PACKET TD SCH ×4 (01:19→22:32)
[2018-03-24 03:39] VITALS: BP 163/66
[2018-03-24 04:34] LABS: HEMATOCRIT 22.9 % (36-48); MEAN CORPUSCULAR VOLUME 81.9 fL (79-99); PLATELET COUNT (AUTO) 249 K/uL (130-400); RED CELL DISTRIBUTION WIDTH 16.5 % (11.0-15.5); WHITE BLOOD COUNT (AUTO) 7.8 K/uL (4.8-10.8)
[2018-03-24 04:46] LABS: POTASSIUM 3.7 mmol/L (3.5-5.1)
[2018-03-24 05:20] LABS: B-TYPE NATRIURETIC PEPTIDE 1260 pg/mL (0-100)
[2018-03-24] MEDS: INSULIN HUMULIN R 100 UNIT/ML 3ML SQ SCH ×4 (06:03→21:00)
[2018-03-24] MEDS: IPRATROPIUM/ALBUTEROL SULFATE 3 ML SOLUTION IH SCH ×4 (06:30→23:16)
[2018-03-24 08:13] VITALS: BP 176/86
[2018-03-24] MEDS: ASPIRIN 81 MG EC TAB PO SCH (08:55)
[2018-03-24] MEDS: FAMOTIDINE 20MG TAB 20 MG TAB PO SCH ×3 (08:55→21:00)
[2018-03-24] MEDS: AMLODIPINE BESYLATE 5 MG TAB PO SCH (08:55)
[2018-03-24] MEDS: METOLAZONE 2.5 MG TABLET PO SCH ×2 (08:55→16:36)
[2018-03-24] MEDS: CARVEDILOL 6.25 MG TABLET PO SCH ×2 (08:56→21:13)
[2018-03-24] MEDS: ENOXAPARIN SODIUM 30 MG/0.3 ML SQ SCH ×2 (08:56→09:00)
[2018-03-24] MEDS: FUROSEMIDE 10 MG/ML 4ML VIAL IVP SCH (09:00)
[2018-03-24 12:00] VITALS: BP 152/72
[2018-03-24 16:00] VITALS: BP 159/76
[2018-03-24] MEDS: FUROSEMIDE 20 MG TABLET PO SCH (16:36)
[2018-03-24] MEDS: GUAIFENESIN-DM 200/20 MG 10 ML PO PRN ×2 (16:36→21:17)
[2018-03-24] MEDS ORDERED: ALBUTEROL SULFATE 0.083% 2.5 MG/3 ML INH IH SCH (18:00)
[2018-03-24 19:41] VITALS: BP 166/68
[2018-03-24] MEDS: CADEXOMER IODINE 40 GM GEL TP SCH (21:17)
[2018-03-24] MEDS: INSULIN GLARGINE 100 UNITS/ML 10 ML VIAL SQ SCH (21:20)
[2018-03-24 23:50] VITALS: BP 162/58
[2018-03-25] VITALS (7 sets, daily range): BP systolic 131–177; BP diastolic 58–82
[2018-03-25 03:13] LABS: CREATININE 3.1 mg/dL (0.5-1.5); POTASSIUM 3.9 mmol/L (3.5-5.1)
[2018-03-25 03:19] LABS: HEMATOCRIT 23.7 % (36-48); MEAN CORPUSCULAR HEMOGLOBIN 27.6 pg (27.0-33.0); MEAN CORPUSCULAR HGB CONC 33.4 g/dL (32.0-36.0); MEAN CORPUSCULAR VOLUME 82.6 fL (79-99); PLATELET COUNT (AUTO) 251 K/uL (130-400); RED BLOOD CELL COUNT(AUTO) 2.87 MIL/uL (4.00-5.50); RED CELL DISTRIBUTION WIDTH 16.5 % (11.0-15.5); WHITE BLOOD COUNT (AUTO) 9.1 K/uL (4.8-10.8)
[2018-03-25 03:37] LABS: B-TYPE NATRIURETIC PEPTIDE 1820 pg/mL (0-100)
[2018-03-25] MEDS: HYDRALAZINE HCL 20 MG/ML VIAL IV PRN (04:03)
[2018-03-25] MEDS: INSULIN HUMULIN R 100 UNIT/ML 3ML SQ SCH ×4 (05:25→21:00)
[2018-03-25 05:31] LABS: LYMPHOCYTES % (MANUAL) 4 % (22-44); MAN.DIFF COMMENT-IMPRESSION MANUAL DIFFERENTIAL; MONOCYTES % (MANUAL) 8 % (2-9); SEGMENTED NEUTROPHILS % 88 % (40-70)
[2018-03-25 05:32] LABS: PLATELET MORPHOLOGY COMMENT ADEQUATE
[2018-03-25] MEDS: NITROGLYCERIN 1GM/1 INCH PACKET TD SCH ×3 (06:06→23:00)
[2018-03-25] MEDS: IPRATROPIUM/ALBUTEROL SULFATE 3 ML SOLUTION IH SCH ×3 (06:19→19:44)
[2018-03-25] MEDS: ENOXAPARIN SODIUM 30 MG/0.3 ML SQ SCH (09:00)
[2018-03-25] MEDS: FAMOTIDINE 20MG TAB 20 MG TAB PO SCH ×2 (09:00→20:16)
[2018-03-25] MEDS: FUROSEMIDE 20 MG TABLET PO SCH ×2 (10:02→17:43)
[2018-03-25] MEDS: AMLODIPINE BESYLATE 5 MG TAB PO SCH (10:02)
[2018-03-25] MEDS: ASPIRIN 81 MG EC TAB PO SCH (10:03)
[2018-03-25] MEDS: CARVEDILOL 6.25 MG TABLET PO SCH ×2 (10:03→20:17)
[2018-03-25] MEDS: METOLAZONE 2.5 MG TABLET PO SCH (10:10)
[2018-03-25] MEDS: INSULIN GLARGINE 100 UNITS/ML 10 ML VIAL SQ SCH (20:16)
[2018-03-25] MEDS: GUAIFENESIN-DM 200/20 MG 10 ML PO PRN (20:17)
[2018-03-26] MEDS: TRAMADOL HCL 50 MG TABLET PO PRN (00:11)
[2018-03-26] MEDS: IPRATROPIUM/ALBUTEROL SULFATE 3 ML SOLUTION IH SCH ×3 (00:17→11:17)
[2018-03-26 03:35] VITALS: BP 139/52
[2018-03-26 04:56] LABS: HEMATOCRIT 24.4 % (36-48); MEAN CORPUSCULAR HEMOGLOBIN 27.1 pg (27.0-33.0); MEAN CORPUSCULAR HGB CONC 32.8 g/dL (32.0-36.0); MEAN CORPUSCULAR VOLUME 82.7 fL (79-99); PLATELET COUNT (AUTO) 265 K/uL (130-400); RED BLOOD CELL COUNT(AUTO) 2.95 MIL/uL (4.00-5.50); RED CELL DISTRIBUTION WIDTH 16.8 % (11.0-15.5); WHITE BLOOD COUNT (AUTO) 7.5 K/uL (4.8-10.8)
[2018-03-26 05:06] LABS: CREATININE 2.9 mg/dL (0.5-1.5); POTASSIUM 3.6 mmol/L (3.5-5.1)
[2018-03-26] MEDS: NITROGLYCERIN 1GM/1 INCH PACKET TD SCH (06:20)
[2018-03-26 07:00] VITALS: BP 161/51
[2018-03-26] MEDS: INSULIN HUMULIN R 100 UNIT/ML 3ML SQ SCH ×2 (07:22→11:23)
[2018-03-26] MEDS: METOLAZONE 2.5 MG TABLET PO SCH (07:22)
[2018-03-26] MEDS: ENOXAPARIN SODIUM 30 MG/0.3 ML SQ SCH (07:22)
[2018-03-26] MEDS: CARVEDILOL 6.25 MG TABLET PO SCH ×2 (07:47→08:37)
[2018-03-26] MEDS: AMLODIPINE BESYLATE 5 MG TAB PO SCH (07:47)
[2018-03-26] MEDS: FUROSEMIDE 20 MG TABLET PO SCH (07:47)
[2018-03-26] MEDS: ASPIRIN 81 MG EC TAB PO SCH (07:47)
[2018-03-26] MEDS: FAMOTIDINE 20MG TAB 20 MG TAB PO SCH (07:47)
[2018-03-26 11:30] VITALS: BP 182/71
[2018-03-26] MEDS: GUAIFENESIN-DM 200/20 MG 10 ML PO PRN (12:17)
[2018-03-26 12:30] VITALS: BP 140/62
[2018-04-28] MEDS ORDERED: APIX2.5T PO (13:05)
[2018-04-28] MEDS ORDERED: IBUP-2353 PO (13:05)
== END 2018-03-26 15:00 | disposition home or self-care (01) | DRG 291 ==
LOC: EDH 18:52 → 2DH 20:35 → OBSVTOIN 20:35
PROVIDERS: ADMIT Internal Medicine; ATTEND Internal Medicine
DX: I13.0 Hypertensive heart and chronic kidney disease with heart failure and stage 1 through stage 4 chronic kidney disease, or unspecified chronic kidney disease (principal); I50.33 Acute on chronic diastolic (congestive) heart failure; J96.21 Acute and chronic respiratory failure with hypoxia; E11.22 Type 2 diabetes mellitus with diabetic chronic kidney disease; N17.9 Acute kidney failure, unspecified; N18.4 Chronic kidney disease, stage 4 (severe); J44.1 Chronic obstructive pulmonary disease with (acute) exacerbation; Z99.81 Dependence on supplemental oxygen; D63.1 Anemia in chronic kidney disease; E11.51 Type 2 diabetes mellitus with diabetic peripheral angiopathy without gangrene; E11.65 Type 2 diabetes mellitus with hyperglycemia; E61.1 Iron deficiency; E78.5 Hyperlipidemia, unspecified; J84.10 Pulmonary fibrosis, unspecified; Z77.22 Contact with and (suspected) exposure to environmental tobacco smoke (acute) (chronic); Z87.891 Personal history of nicotine dependence; Z86.73 Personal history of transient ischemic attack (TIA), and cerebral infarction without residual deficits; Z88.0 Allergy status to penicillin; Z88.8 Allergy status to other drugs, medicaments and biological substances; Z82.49 Family history of ischemic heart disease and other diseases of the circulatory system
CPT/HCPCS: 36415; 71045; 71250; 80048; 80053; 82550; 82553; 82607; 82728; 82746; 82948; 83036; 83605; 83874; 83880; 84443; 84484; 85025; 85027; 85610; 85730; 87040; 93005; 93306; 93970; 94640; 94664; 97039; 99291; J0360; J1650; J1815; J1940; J2405; J3490

== ENCOUNTER 2018-12-03 10:28 | Emergency (ER) | payer OTHER, MEDICARE ==
[~2018-12-03 10:28] MED LIST changes: -ALPR1TAB7 PO; +APIX2.5T PO; -DOXY100C2 PO; -FURO40TA5 PO; +IBUP-2353 PO; -INSU100V SQ; -INSU100V12 SQ
[2018-12-03] MEDS ORDERED: LIDOCAINE 1%-EPI 1:100,000 20 ML VIAL IJ ONE (11:39)
[2018-12-03 12:39] LABS: BASOPHILS % (AUTO) 0.5 % (0.0-5.0); EOSINOPHILS % (AUTO) 4.9 % (0.0-8.0); HEMATOCRIT 23.5 % (36-48); LYMPHOCYTES % (AUTO) 11.7 % (21.0-51.0); MEAN CORPUSCULAR HEMOGLOBIN 28.2 pg (27.0-33.0); MEAN CORPUSCULAR HGB CONC 33.8 g/dL (32.0-36.0); MEAN CORPUSCULAR VOLUME 83.5 fL (79-99); MONOCYTES % (AUTO) 4.3 % (3.0-13.0); NEUTROPHILS % (AUTO) 78.6 % (40.0-77.0); PLATELET COUNT (AUTO) 301 K/uL (130-400); RED BLOOD CELL COUNT(AUTO) 2.82 MIL/uL (4.00-5.50); RED CELL DISTRIBUTION WIDTH 15.2 % (11.0-15.5); WHITE BLOOD COUNT (AUTO) 6.9 K/uL (4.8-10.8)
[2018-12-03 12:50] LABS: CREATININE 2.5 mg/dL (0.5-1.5); INR 1.09 (0.85-1.15); PARTIAL THROMBOPLASTIN TIME 23.8 SEC (26.3-35.5); PROTHROMBIN TIME 11.4 SEC (9.6-11.6)
[2018-12-03 12:55] LABS: ALBUMIN 3.7 g/dL (3.5-5.0); BILIRUBIN,TOTAL 0.5 mg/dL (0.2-1.0); TOTAL PROTEIN, SERUM 9.5 g/dL (6.0-8.3)
[2018-12-03] MEDS ORDERED: HYDRALAZINE HCL 20 MG/ML VIAL ONE (17:45)
[2018-12-03] MEDS ORDERED: AMLODIPINE BESYLATE 5 MG TAB PO ONE (17:51)
== END 2018-12-03 18:10 | disposition home or self-care (01) ==
LOC: EDH 10:28
DX: K06.8 Other specified disorders of gingiva and edentulous alveolar ridge (principal); I13.2 Hypertensive heart and chronic kidney disease with heart failure and with stage 5 chronic kidney disease, or end stage renal disease; I50.9 Heart failure, unspecified; E11.22 Type 2 diabetes mellitus with diabetic chronic kidney disease; E78.5 Hyperlipidemia, unspecified; N18.6 End stage renal disease; Z88.1 Allergy status to other antibiotic agents; Z88.6 Allergy status to analgesic agent; Z98.890 Other specified postprocedural states; Z99.2 Dependence on renal dialysis
CPT/HCPCS: 36415; 80053; 84484; 85025; 85610; 85730; 93005; 96372; 99285; J0360; J3490

== ENCOUNTER → 2019-06-15 | Outpatient (CLI) | payer MEDICARE | END | disposition home or self-care (01) | LOC: RAH 07:55 | PROVIDERS: ATTEND Internal Medicine Cardiovascular Disease | DX: I11.0 Hypertensive heart disease with heart failure (principal); I50.9 Heart failure, unspecified; I07.1 Rheumatic tricuspid insufficiency; I31.3 Pericardial effusion (noninflammatory); K76.89 Other specified diseases of liver; Z90.49 Acquired absence of other specified parts of digestive tract | CPT/HCPCS: 76705; 93306 ==

== ENCOUNTER 2019-09-08 10:34 | Emergency (ER) | payer MEDICARE ==
[~2019-09-08 10:34] MED LIST changes: -IBUP-2353 PO; +IBUP-2784 PO
[2019-09-08 13:12] LABS: BASOPHILS % (AUTO) 0.2 % (0.0-5.0); HEMATOCRIT 23.8 % (36-48); LYMPHOCYTES % (AUTO) 0.9 % (21.0-51.0); MEAN CORPUSCULAR HEMOGLOBIN 35.6 pg (27.0-33.0); MEAN CORPUSCULAR VOLUME 111.2 fL (79-99); MONOCYTES % (AUTO) 1.6 % (3.0-13.0); NEUTROPHILS % (AUTO) 97.3 % (40.0-77.0); PLATELET COUNT (AUTO) 252 K/uL (130-400); RED BLOOD CELL COUNT(AUTO) 2.14 MIL/uL (4.00-5.50); RED CELL DISTRIBUTION WIDTH 21.2 % (11.0-15.5); WHITE BLOOD COUNT (AUTO) 28.9 K/uL (4.8-10.8)
[2019-09-08 13:21] LABS: CREATININE 2.1 mg/dL (0.5-1.5); POTASSIUM 4.2 mmol/L (3.5-5.1)
[2019-09-08 13:26] LABS: ALBUMIN 3.2 g/dL (3.5-5.0); BILIRUBIN,TOTAL 1.8 mg/dL (0.2-1.0); TOTAL PROTEIN, SERUM 6.2 g/dL (6.0-8.3)
[2019-09-08] MEDS ORDERED: ACETAMINOPHEN EXTRA STRENGTH 500 MG TABLET ONE ×2 (14:18→14:25)
[2019-09-08] MEDS ORDERED: LIDOCAINE/PRILOCAINE CREAM 5GM TUBE TP ONE (16:08)
[2019-09-08 18:02] LABS: BASOPHILS % (AUTO) 0.3 % (0.0-5.0); EOSINOPHILS % (AUTO) 0.1 % (0.0-8.0); HEMATOCRIT 24.6 % (36-48); MEAN CORPUSCULAR HGB CONC 32.9 g/dL (32.0-36.0); MEAN CORPUSCULAR VOLUME 85.2 fL (79-99); MONOCYTES % (AUTO) 2.5 % (3.0-13.0); NEUTROPHILS % (AUTO) 94.1 % (40.0-77.0); PLATELET COUNT (AUTO) 212 K/uL (130-400); RED BLOOD CELL COUNT(AUTO) 2.88 MIL/uL (4.00-5.50); RED CELL DISTRIBUTION WIDTH 15.4 % (11.0-15.5); WHITE BLOOD COUNT (AUTO) 13.8 K/uL (4.8-10.8)
[2019-09-08 18:09] LABS: ALBUMIN 2.9 g/dL (3.5-5.0); BILIRUBIN,TOTAL 0.5 mg/dL (0.2-1.0); TOTAL PROTEIN, SERUM 7.1 g/dL (6.0-8.3)
[2019-09-08] MEDS ORDERED: SODIUM CHLORIDE 0.9% 1000ML 1,000 ML IV ONE (18:19)
[2019-09-08] MEDS ORDERED: SODIUM CHLORIDE 0.9% 100 ML IV ONE (18:19)
[2019-09-08] MEDS ORDERED: CEFTRIAXONE SODIUM 1 GM ONE (18:19)
[2019-09-08] MEDS ORDERED: HYDRALAZINE HCL 20 MG/ML VIAL ONE (18:19)
[2019-09-08] MEDS ORDERED: AMLODIPINE BESYLATE 5 MG TAB PO ONE (18:42)
[2019-09-08] MEDS ORDERED: MINOXIDIL 2.5 MG TAB PO ONE (19:45)
[2019-09-08] MEDS ORDERED: CLONIDINE HCL 0.1 MG TABLET ONE (20:50)
== END 2019-09-09 01:53 | disposition home or self-care (01) ==
LOC: EDH 10:34
DX: S43.401A Unspecified sprain of right shoulder joint, initial encounter (principal); D63.1 Anemia in chronic kidney disease; M25.551 Pain in right hip; M25.561 Pain in right knee; I13.2 Hypertensive heart and chronic kidney disease with heart failure and with stage 5 chronic kidney disease, or end stage renal disease; S79.911A Unspecified injury of right hip, initial encounter; S89.91XA Unspecified injury of right lower leg, initial encounter; E11.22 Type 2 diabetes mellitus with diabetic chronic kidney disease; N18.6 End stage renal disease; I50.9 Heart failure, unspecified; E78.5 Hyperlipidemia, unspecified; Z88.1 Allergy status to other antibiotic agents; Z88.0 Allergy status to penicillin; Z88.6 Allergy status to analgesic agent; W06.XXXA Fall from bed, initial encounter; Y93.89 Activity, other specified; Y92.89 Other specified places as the place of occurrence of the external cause; Y99.8 Other external cause status
CPT/HCPCS: 36415; 70450; 71045; 73030; 73502; 73562; 73630; 80053 ×2; 83605; 84484 ×2; 85025 ×2; 87040 ×2; 93005; 96374; 99285; J0360; J0696; J3490; J7030